=== PATIENT | female | born 1975 | race Two or more races ===

== ENCOUNTER 2017-08-28 01:39 | Emergency (ER) | payer OTHER ==
[~2017-08-28] VITALS: Ht 170.2 cm; Wt 82.0 kg
[2017-08-28 01:54] VITALS: BP 124/85
[2017-08-28 02:48] LABS: HIV 1&2 ANTIBODY SCREEN Nonreactive (Nonreactive); HIV-1 p24 ANTIGEN Nonreactive (Nonreactive)
== END 2017-08-28 03:21 | disposition home or self-care (01) ==
LOC: ED 03:15
DX: Z00.00 Encounter for general adult medical examination without abnormal findings (principal)
CPT/HCPCS: 36415; 86703; 86803; 87340; 87899; 99284; G0435

== ENCOUNTER 2019-04-03 18:42 | Emergency (ER) | payer MEDICAID, OTHER ==
[~2019-04-03] VITALS: Ht 170.2 cm; Wt 68.0 kg
[2019-04-03 19:36] VITALS: BP 128/101
== END 2019-04-03 23:12 | disposition home or self-care (01) ==
LOC: ED 23:00
DX: L03.116 Cellulitis of left lower limb (principal); Z72.9 Problem related to lifestyle, unspecified; Z00.01 Encounter for general adult medical examination with abnormal findings; F17.200 Nicotine dependence, unspecified, uncomplicated
CPT/HCPCS: 99283

== ENCOUNTER 2020-08-22 18:00 | Emergency (ER) | payer MEDICAID ==
[~2020-08-22] VITALS: Ht 172.7 cm; Wt 71.2 kg
[2020-08-22 18:29] LABS: BASOPHILS % (AUTO) 1 % (0-1); EOSINOPHILS % (AUTO) 2 % (1-7); LYMPHOCYTES % (AUTO) 27 % (22-44); MD NO; MEAN CORPUSCULAR HEMOGLOBIN 27.6 pg (27.0-34.8); MEAN CORPUSCULAR HGB CONC 33.2 g/dL (32.4-35.8); MEAN PLATELET VOLUME 7.2 fL (7.4-10.4); MONOCYTES % (AUTO) 9 % (2-9); NEUTROPHILS % (AUTO) 61 % (42-75); PLATELET COUNT 412 x10^3/uL (130-400); RED BLOOD COUNT 3.87 x10^6/uL (3.82-5.3); RED CELL DISTRIBUTION WIDTH 15.2 % (9.6-15.2)
[2020-08-22 18:41] LABS: ALBUMIN 3.3 g/dL (3.4-5.0); ANION GAP 2 mmol/L (5-15); CALCIUM 8.6 mg/dL (8.5-10.1); CHLORIDE 106 mmol/L (98-107)
[2020-08-22 18:48] LABS: CREATININE 0.88 mg/dL (0.55-1.02)
--- NOTE | 2020-08-22 19:04 | NUR ---
REPORT FROM KARIS OWENS.
--- NOTE | 2020-08-22 19:55 | NUR ---
PT WAS SLEEPING. ALL QUESTIONS ANSWERED AT D/C. PT INFORMED THIS RN AT THIS TIME THAT SHE'S "HAD HER TUBES TIED."
[2020-08-22 19:56] VITALS: BP 114/80
== END 2020-08-22 19:59 | disposition home or self-care (01) ==
LOC: ED 19:33
DX: N93.8 Other specified abnormal uterine and vaginal bleeding (principal); D25.9 Leiomyoma of uterus, unspecified; R42 Dizziness and giddiness; F15.20 Other stimulant dependence, uncomplicated; F17.210 Nicotine dependence, cigarettes, uncomplicated
CPT/HCPCS: 36415; 76801; 80048; 82040; 84702; 85025; 86901; 99284